=== PATIENT | female | born 1975 | race Hispanic/Latino ===

== ENCOUNTER 2018-05-28 22:27 | Emergency (ER) | payer OTHER ==
[~2018-05-28] VITALS: Ht 149.9 cm; Wt 134.3 kg
--- OUTSIDE RECORDS SUMMARY | 2018-05-28 22:29 | XMS REPORT | Continuity of Care Document ---
Author Author [facility] Interface Address Unknown Phone Unavailable Problems Problem Status Onset Date Classification Date Reported Comments Source LT SIDE FACE NUMB Active 03/02/2018 [facility] Discharge Diagnosis: Nerve pain 12/25/2016 12/28/2016 [facility] FACIAL NUMBNESS Active 12/24/2016 [facility] Medications Medication Details Route Status Patient Instructions Ordering Provider Order Date Source gabapentin 100 MG Oral Capsule 300 mg=3 cap, PO, TID, # 10 cap, 0 Refill(s) Active 12/25/2016 [facility] Saline Flush 0.9% 10 mL, Route: IVP, Drug Form: INJ, Dosing Weight 75.909, kg, PRN, PRN Line Flush, Start date: 12/24/16 21:19:00 CDT, Duration: 30 day, Stop date: 01/23/17 20:18:00 CSTNotes: (Same as: BD Posiflush) No Longer Active 12/25/2016 [facility] Allergies, Adverse Reactions, Alerts Substance Category Reaction Severity Reaction type Status Date Reported Comments Source Immunizations Immunization Date Given Site Status Last Updated Comments Source Results Order Name Results Value Reference Range Date Interpretation Comments Source Brain wo contrast CT Brain wo contrast CT Patient Name: GORGE MCKEON : 1975; Age: 42 years Female MR: [id number] Study: Brain wo contrast CT 03/02/2018 1:38 PM MEDICARE SPECIALIST Clinical Indication: - left facial droop, left ear pain. COMPARISON: 12/24/2016 TECHNIQUE: CT images were obtained from the foramen magnum to the vertex without the use of intravenous contrast on a multidetector CT. Coronal and sagittal reconstructions were obtained. CT imaging performed at this location utilizes radiation dose optimization techniques which include one or more of the following: -Automated exposure control -Adjustment of the mA and/or kV according to patient size -Use of iterative reconstruction technique CT Radiation Dose DLP 902.23 mGy-cm FINDINGS: BRAIN PARENCHYMA: There are normal oliver-white interfaces, sulci and gyri. There is no mass effect or midline shift. There is no extra-axial fluid collection, intraventricular or intraparenchymal hemorrhage. The sella and pineal regions are normal. The skull base, cerebellum and brainstem are normal. VENTRICLES: The ventricles are normal in size and configuration. The basilar cisterns are normal. ORBITS, MASTOIDS AND PARANASAL SINUSES: The visualized orbits are normal. The paranasal sinuses are normal. The mastoid air cells are clear. SKULL: There are no osseous abnormalities. If there is further concern for intracranial pathology or acute stroke, MRI of the brain may be performed for complete assessment. IMPRESSION: No acute intracranial bleed, midline shift or mass effect. SL: [id number] 03/02/2018 - - Read by: Kishore Segura MD Dictated Date/time: 03/02/18 16:11 Electronically Signed by: Kishore Segura MD 03/02/18 16:19 FINAL REPORT [facility] Chest 1view DX Chest 1view DX Clinical Indication: -Chest pain last night. Facial droop left side. Comparison: 12/24/2016. FINDINGS: AP 1 view chest radiograph was performed. LUNGS: Small lung volumes with mild accentuation of the pulmonary vascularity. No confluent interstitial or airspace opacities. No pleural effusions or pneumothorax. HEART AND MEDIASTINUM: The heart size is normal. The mediastinal contour is normal. The trachea is midline. OSSEOUS STRUCTURES: No acute abnormality seen. IMPRESSION: 1. Small lung volumes with mild accentuation of the pulmonary vascularity. No confluent infiltrates in the lungs. SL: [id number] 03/02/2018 - - Read by: Ross Gracia MD Dictated Date/time: 03/02/18 14:05 Electronically Signed by: Ross Gracia MD 03/02/18 14:06 FINAL REPORT [facility] CARDIAC ENZYMES CK MB Index 0.9 0.0 - 2.5 12/25/2016 [facility] CARDIAC ENZYMES CK MB 0.8 ng/mL 0.5 - 3.6 12/25/2016 [facility] CARDIAC ENZYMES Troponin-I null 0.00 - 0.40 12/25/2016 [facility] CARDIAC ENZYMES Total CK 85 unit/L 12 - 191 12/25/2016 [facility] CHEM PANEL eGFR 79 mL/min/1.73m2 12/25/2016 Result Comment: The eGFR is calculated using the CKD-EPI formula. In most young, healthy individuals the eGFR will be >90 mL/min/1.73m2. The eGFR declines with age. An eGFR of 60-89 may be normal in some populations, particularly the elderly, for whom the CKD-EPI formula has not been extensively validated. Use of the eGFR is not recommended in the following populations: Individuals with unstable creatinine concentrations, including patients and those with serious co-morbid conditions. Patients with extremes in muscle mass or diet. The data above are obtained from the National Kidney Disease Education Program (NKDEP) which additionally recommends that when the eGFR is used in patients with extremes of body mass index for purposes of drug dosing, the eGFR should be multiplied by the estimated BMI. [facility] CHEM PANEL Sodium Lvl 136 meq/L 135 - 145 12/25/2016 [facility] CHEM PANEL Albumin Lvl 3.8 g/dL 3.5 - 5.0 12/25/2016 [facility] CHEM PANEL Calcium Lvl 9.2 mg/dL 8.5 - 10.5 12/25/2016 [facility] CHEM PANEL ALT 56 unit/L 0 - 65 12/25/2016 [facility] CHEM PANEL Potassium Lvl 3.9 meq/L 3.5 - 5.1 12/25/2016 [facility] CHEM PANEL Creatinine Lvl 0.91 mg/dL 0.50 - 1.40 12/25/2016 [facility] CHEM PANEL Chloride Lvl 100 meq/L 95 - 109 12/25/2016 [facility] CHEM PANEL CO2 27 meq/L 24 - 32 12/25/2016 [facility] CHEM PANEL Bili Total 1.0 mg/dL 0.2 - 1.3 12/25/2016 [facility] CHEM PANEL AGAP 12.9 meq/L 10.0 - 20.0 12/25/2016 [facility] CHEM PANEL AST 44 unit/L 0 - 37 12/25/2016 [facility] CHEM PANEL Total Protein 9.2 g/dL 6.4 - 8.4 12/25/2016 [facility] CHEM PANEL Alk Phos 77 unit/L 39 - 136 12/25/2016 [facility] CHEM PANEL B/C Ratio 14 6 - 25 12/25/2016 [facility] CHEM PANEL Globulin 5.4 g/dL 2.7 - 4.2 12/25/2016 [facility] CHEM PANEL A/G Ratio 0.7 0.7 - 1.6 12/25/2016 [facility] CHEM PANEL BUN 13 mg/dL 7 - 22 12/25/2016 [facility] CHEM PANEL Glucose Lvl 136 mg/dL 70 - 99 12/25/2016 [facility] ENDOCRINOLOGY S Preg Negative *NA* (12/24/16 10:40 PM) Negative 12/25/2016 [facility] HEMATOLOGY Basophils # 0.1 K/CMM 0.0 - 0.2 12/25/2016 [facility] HEMATOLOGY Eosinophils # 0.3 K/CMM 0.0 - 0.5 12/25/2016 [facility] HEMATOLOGY Basophils 1.0 % 0.0 - 1.0 12/25/2016 [facility] HEMATOLOGY Eosinophils 2.7 % 0.0 - 4.0 12/25/2016 [facility] HEMATOLOGY Segs-Bands # 6.8 K/CMM 1.5 - 8.1 12/25/2016 [facility] HEMATOLOGY Lymphocytes # 2.9 K/CMM 1.0 - 5.5 12/25/2016 [facility] HEMATOLOGY Monocytes # 0.6 K/CMM 0.0 - 0.8 12/25/2016 [facility] Monocytes 5.3 % 2.0 - 12.0 12/25/2016 [facility] Lymphocytes 27.0 % 20.0 - 40.0 12/25/2016 [facility] Segs 64.0 % 45.0 - 75.0 12/25/2016 [facility] MCH 28.7 pg 27.0 - 31.0 12/25/2016 [facility] HEMATOLOGY RDW 13.1 % 11.5 - 14.5 12/25/2016 [facility] MCHC 34.2 g/dL 32.0 - 36.0 12/25/2016 [facility] WBC 10.6 K/CMM 3.7 - 10.4 12/25/2016 [facility] Hgb 14.0 g/dL 12.0 - 16.0 12/25/2016 [facility] HEMATOLOGY RBC 4.88 M/CMM 4.20 - 5.40 12/25/2016 [facility] HEMATOLOGY Hct 40.8 % 36.0 - 48.0 12/25/2016 [facility] HEMATOLOGY MCV 83.7 fL 80.0 - 98.0 12/25/2016 [facility] HEMATOLOGY MPV 8.2 fL 7.4 - 10.4 12/25/2016 [facility] HEMATOLOGY Platelet 321 K/CMM 133 - 450 12/25/2016 [facility] Chest 1view DX Chest 1view DX EXAM: XR CHEST 1 VIEW DATE: 12/24/2016 9:19 PM CDT INDICATION: Chest pain. COMPARISON: None Available. TECHNIQUE: A single AP view of the chest was obtained. FINDINGS: No focal consolidation or pneumothorax is identified. The cardiomediastinal silhouette is within normal limits. The costophrenic recesses are sharp and without effusion. No acute osseous abnormality is noted. IMPRESSION: No acute cardiopulmonary abnormality. SL: [id number] 12/24/2016 - - Read by: Ghulam Vasquez MD Dictated Date/time: 12/24/16 22:29 Electronically Signed by: Ghulam Vasquez MD 12/24/16 22:30 FINAL REPORT [facility] Brain wo contrast CT Brain wo contrast CT I have reviewed the examination and concur with the interpretation. Clinical Indication: Headache Comparison: None TECHNIQUE: CT images were obtained from the foramen magnum to the vertex without the use of intravenous contrast on a multidetector CT. Coronal and sagittal reconstructions were obtained. CT radiation dose DLP: 901.26 mGy-cm FINDINGS: BRAIN PARENCHYMA: Normal oliver-white interfaces, sulci and gyri. No focal mass lesions on this noncontrast head CT. No mass effect, midline shift or edema. No intra-axial or extra-axial fluid collections, intraventricular or intraparenchymal hemorrhage. Pineal, brainstem, cerebellum and skull base regions appear unremarkable. No abnormal findings in the sella. VENTRICLES: Lateral ventricles, third and fourth ventricles appear unremarkable. Basilar cisterns are normal. ORBITS, MASTOIDS AND PARANASAL SINUSES: -Visualized orbits/retro-orbital spaces are within normal limits. - The paranasal sinuses are unremarkable. The mastoid air cells are clear. SKULL: No acute osseous abnormalities. No focal or asymmetric scalp swelling. If there is further concern for intracranial pathology or acute stroke, MRI of the brain may be performed for complete assessment. IMPRESSION: 1. No acute intracranial abnormality. No mass, hemorrhage, or subacute stroke. SL: [id number] 12/24/2016 - - Read by: Hermann Smiley MD Dictated Date/time: 12/24/16 21:50 Electronically Signed by: Hermann Smiley MD 12/24/16 21:50 FINAL REPORT - - Read by: Ken Richards MD Dictated Date/time: 12/24/16 21:47 Electronically Signed by: Ken Richards MD 12/24/16 21:49 FINAL REPORT [facility] Vital Signs Vital Sign Value Date Comments Source Temperature Oral (F) 98.1 F 12/25/2016 [facility] Systolic (mm Hg) 125 12/25/2016 [facility] Diastolic (mm Hg) 70 12/25/2016 [facility] Respitory Rate 20 12/25/2016 [facility] Respitory Rate 20 12/25/2016 [facility] Systolic (mm Hg) 122 12/25/2016 [facility] Diastolic (mm Hg) 72 12/25/2016 [facility] Respitory Rate 20 12/25/2016 [facility] Systolic (mm Hg) 132 12/25/2016 [facility] Diastolic (mm Hg) 78 12/25/2016 [facility] Heart Rate 90 12/25/2016 [facility] Temperature Oral (F) 98.3 F 12/25/2016 [facility] BMI Calculated 44.53 12/25/2016 [facility] Weight 100 12/25/2016 [facility] Height 149.86 cm 12/25/2016 [facility] Heart Rate 93 12/25/2016 [facility] Temperature Oral (F) 98.3 F 12/25/2016 [facility] Encounters Location Location Details Encounter Type Encounter Number Reason For Visit Attending Provider ADM Date DC Date Status Source [facility] Emergency [id number] Uri Iheme 12/25/2016 12/25/2016 [facility] Procedures Procedure Code Date Perfomer Comments Source section [id number] [facility]
--- OUTSIDE RECORDS SUMMARY | 2018-05-28 22:29 | XMS REPORT | Summary of Care ---
Author Author [facility] Organization [facility] Address Unknown Phone Unavailable Encounter SHANNON Cui(PREMA) [id number] Date(s): 12/24/16 - 12/25/16 [facility] [address] [place] [address]- [phone] Discharge Diagnosis: Nerve pain Discharge Disposition: Home or Self Care Attending Physician: Uri Farnsworth MD Vital Signs 1 2 3 Most recent to oldest [Reference Range]: 149.86 cm (12/24/16 9:16 PM) Height 98.1 DegF (12/25/16 2:13 AM) 98.3 DegF (12/24/16 10:33 PM) 98.3 DegF (12/24/16 9:16 PM) Temperature Oral [96.4-99.1 DegF] 125/70 mmHg (12/25/16 2:13 AM) 122/72 mmHg (12/25/16 12:00 AM) 132/78 mmHg (12/24/16 10:41 PM) Blood Pressure [90-140/60-90 mmHg] 20 BRMIN (12/25/16 2:13 AM) 20 BRMIN (12/25/16 12:00 AM) 20 BRMIN (12/24/16 10:41 PM) Respiratory Rate [14-20 BRMIN] 90 bpm (12/24/16 10:33 PM) 93 bpm (12/24/16 9:16 PM) Peripheral Pulse Rate [60-100 bpm] 100 kg (12/24/16 9:16 PM) Weight 44.53 m2 (12/24/16 9:16 PM) Body Mass Index Problem List No data available for this section Allergies, Adverse Reactions, Alerts Substance Reaction Severity Status NKDA Active Medications gabapentin 100 mg oral capsule 300 mg=3 cap, PO, TID, # 10 cap, 0 Refill(s) Start Date: 12/25/16 Status: Ordered Saline Flush 0.9% 10 mL, Route: IVP, Drug Form: INJ, Dosing Weight 75.909, kg, PRN, PRN Line Flush , Start date: 12/24/16 21:19:00 CDT, Duration: 30 day, Stop date: 01/23/17 20:18 :00 [employer] Notes: (Same as: BD Posiflush) Start Date: 12/24/16 Stop Date: 12/25/16 Status: Discontinued Results ELECTROLYTES Most recent to 1 oldest [Reference Range]: Sodium Lvl [135-145 136 mEq/L mEq/L] (12/24/16 10:40 PM) Potassium Lvl 3.9 mEq/L [3.5-5.1 mEq/L] (12/24/16 10:40 PM) Chloride Lvl [95-109 100 mEq/L mEq/L] (12/24/16 10:40 PM) CO2 [24-32 mEq/L] 27 mEq/L (12/24/16 10:40 PM) AGAP [10.0-20.0 12.9 mEq/L mEq/L] (12/24/16 10:40 PM) CHEM PANEL Most recent to 1 oldest [Reference Range]: Creatinine Lvl 0.91 mg/dL [0.50-1.40 mg/dL] (12/24/16 10:40 PM) eGFR 79 mL/min/1.73m2 1 *NA* (12/24/16 10:40 PM) BUN [7-22 mg/dL] 13 mg/dL (12/24/16 10:40 PM) B/C Ratio [6-25] 14 (12/24/16 10:40 PM) Glucose Lvl [70-99 136 mg/dL mg/dL] *HI* (12/24/16 10:40 PM) Total Protein 9.2 g/dL [6.4-8.4 g/dL] *HI* (12/24/16 10:40 PM) Albumin Lvl [3.5-5.0 3.8 g/dL g/dL] (12/24/16 10:40 PM) Globulin [2.7-4.2 5.4 g/dL g/dL] *HI* (12/24/16 10:40 PM) A/G Ratio [0.7-1.6] 0.7 (12/24/16 10:40 PM) Calcium Lvl 9.2 mg/dL [8.5-10.5 mg/dL] (12/24/16 10:40 PM) ALT [0-65 unit/L] 56 unit/L (12/24/16 10:40 PM) AST [0-37 unit/L] 44 unit/L *HI* (12/24/16 10:40 PM) Alk Phos [39-136 77 unit/L unit/L] (12/24/16 10:40 PM) Bili Total [0.2-1.3 1.0 mg/dL mg/dL] (12/24/16 10:40 PM) 1Result Comment: The eGFR is calculated using the [...] from the National Kidney Disease Education Program ( NKDEP) which additionally recommends that when the eGFR is used in patients with extremes of body mass index for purposes of drug dosing, the eGFR should be mul tiplied by the estimated BMI. CARDIAC ENZYMES Most recent to 1 oldest [Reference Range]: Total CK [12-191 85 unit/L unit/L] (12/24/16 10:40 PM) CK MB [0.5-3.6 0.8 ng/mL ng/mL] (12/24/16 10:40 PM) CK MB Index 0.9 [0.0-2.5] (12/24/16 10:40 PM) Troponin-I <0.02 ng/mL [0.00-0.40 ng/mL] (12/24/16 10:40 PM) ENDOCRINOLOGY Most recent to 1 oldest [Reference Range]: S Preg [Negative] Negative *NA* (12/24/16 10:40 PM) HEMATOLOGY Most recent to 1 oldest [Reference Range]: WBC [3.7-10.4 K/CMM] 10.6 K/CMM *HI* (12/24/16 10:40 PM) RBC [4.20-5.40 4.88 M/CMM M/CMM] (12/24/16 10:40 PM) Hgb [12.0-16.0 g/dL] 14.0 g/dL (12/24/16 10:40 PM) Hct [36.0-48.0 %] 40.8 % (12/24/16 10:40 PM) MCV [80.0-98.0 fL] 83.7 fL (12/24/16 10:40 PM) MCH [27.0-31.0 pg] 28.7 pg (12/24/16 10:40 PM) MCHC [32.0-36.0 34.2 g/dL g/dL] (12/24/16 10:40 PM) RDW [11.5-14.5 %] 13.1 % (12/24/16 10:40 PM) Platelet [133-450 321 K/CMM K/CMM] (12/24/16 10:40 PM) MPV [7.4-10.4 fL] 8.2 fL (12/24/16 10:40 PM) Segs [45.0-75.0 %] 64.0 % (12/24/16 10:40 PM) Lymphocytes 27.0 % [20.0-40.0 %] (12/24/16 10:40 PM) Monocytes [2.0-12.0 5.3 % %] (12/24/16 10:40 PM) Eosinophils [0.0-4.0 2.7 % %] (12/24/16 10:40 PM) Basophils [0.0-1.0 1.0 % %] (12/24/16 10:40 PM) Segs-Bands # 6.8 K/CMM [1.5-8.1 K/CMM] (12/24/16 10:40 PM) Lymphocytes # 2.9 K/CMM [1.0-5.5 K/CMM] (12/24/16 10:40 PM) Monocytes # [0.0-0.8 0.6 K/CMM K/CMM] (12/24/16 10:40 PM) Eosinophils # 0.3 K/CMM [0.0-0.5 K/CMM] (12/24/16 10:40 PM) Basophils # [0.0-0.2 0.1 K/CMM K/CMM] (12/24/16 10:40 PM) Immunizations No data available for this section Procedures Procedure Date Related Diagnosis Body Site section Social History Social History Type Response Smoking Status Current some day smoker; Exposure to Tobacco Smoke None; Cigarette Smoking Last 365 Days No; Reg Smoking Cessation Counseling No Assessment and Plan No data available for this section
== END 2018-05-28 22:56 | disposition home or self-care (01) ==
LOC: FSED 22:27
DX: R50.9 Fever, unspecified (principal); R05 Cough; H65.02 Acute serous otitis media, left ear; J02.0 Streptococcal pharyngitis
CPT/HCPCS: 99283